=== PATIENT | female | born 1940 | race African-American/Black ===

== ENCOUNTER → 2018-06-27 | Outpatient (CLI) | payer OTHER, BC ==
[~2018-06-27] MED LIST: ALEVE220 MG PO; CENTRUM SILVER1 EAC4 PO; CLONIDINE0.1 PO; FERROUS SULFAT325 MG PO; KLOR-CON M2020 MEQ PO; VALSARTAN-HCTZ1 EAC1 PO
== END ==
LOC: ULTRA 10:16
DX: M25.461 Effusion, right knee (principal); M79.89 Other specified soft tissue disorders

== ENCOUNTER 2018-07-02 05:24 | Inpatient (IN) | payer OTHER, BC ==
[2018-06-25 11:16] LABS: URINE BILIRUBIN NEGATIVE (Negative); URINE BLOOD TRACE (Negative); URINE CLARITY CLEAR; URINE COLOR YELLOW; URINE GLUCOSE-RANDOM* NEGATIVE (Negative); URINE KETONES NEGATIVE (Negative); URINE LEUKOCYTES-REFLEX NEGATIVE (Negative); URINE NITRITE-REFLEX NEGATIVE (Negative); URINE PROTEIN (DIPSTICK) NEGATIVE (Negative); URINE UROBILINOGEN 0.2 E.U./dl (0.2-1.0)
[2018-06-25 11:17] LABS: HEMATOCRIT 30.3 % (37.0-47.0); HEMOGLOBIN 10.4 gm/dL (12.0-15.0); MCH 31.7 pg (26.0-34.0); MCHC 34.4 g/dL (28.0-37.0); MCV 92.3 fL (80.0-100.0); RBC 3.28 mil/uL (4.20-5.00); RDW 13.4 % (10.5-14.5); WBC 5.3 thou/uL (4.0-11.0)
[2018-06-25 11:24] LABS: ALBUMIN 3.3 g/dL (3.4-5.0); CALCIUM 9.6 mg/dL (8.5-10.1); POTASSIUM 4.1 mmol/L (3.5-5.1)
[2018-06-25 11:28] LABS: PROTIME 10.6 Seconds (9.3-11.4)
[2018-07-02] VITALS (9 sets, daily range): BP systolic 109–163; BP diastolic 56–88
[~2018-07-02] VITALS: Ht 154.9 cm; Wt 86.2 kg
--- NOTE | ~2018-07-02 | EKG ---
[place] [address] [facility] [place] [address] ELECTROCARDIOGRAM REPORT Name: GERONIMO STOVER Room #: PRE IN ..#: [id number] Admission: Attend Phys: Karl Tyler MD Discharge: Date of : 36 Report #: [id number] THIS REPORT FOR: //name// [facility] Test Date: 2018-06-25 Test Time: 10:44:12 Pat Name: GERONIMO STOVER Department: Room: Gender: F Mattress Finisher: Kami SKELTON : 1940 Requested By: Karl Tyler Order Number: [id number] MD: Connor Norman Measurements Intervals [place] Rate: 66 P: 35 AK: 164 QRS: 40 QRSD: 91 T: 45 QT: 409 QTc: 429 Interpretive Statements Sinus rhythm early transition non specific st/t wave changes No previous ECG available for comparison Electronically Signed On 06-25-2018 13:00:28 APPLICATIONS INSTRUCTOR by Connor Norman [email or web address] <ELECTRONICALLY SIGNED> By: Connor Norman MD 06/25/18 1300 1044 1044 Connor Norman MD /EPI
--- NOTE | ~2018-07-02 | O ---
[address] [address] OPERATIVE REPORT Name: GERONIMO MERCEDES Room #: 450-P ADM IN M.R.#: [id number] Admission: 07/02/18 Attend Phys: Karl Tyler MD Discharge: Date of : 36 Report #: [id number] THIS REPORT FOR: //name// CC: Karl Mercedes [facility] DATE OF SERVICE: 07/02/2018 SERVICE: Orthopedics. FACILITY: [place]. SURGEON: Karl Tyler MD. PROGRAMMER NUMERICAL CONTROL: Valorie Marie NP. INDICATION FOR PROGRAMMER NUMERICAL CONTROL: Extremity positioning, retracting management and inventory assistant with the arthroplasty. PREOPERATIVE DIAGNOSES: 1. Right knee pain. 2. Right knee valgus type osteoarthritis. 3. Right knee flexion contracture, 12 degrees. POSTOPERATIVE DIAGNOSES: 1. Right knee pain. 2. Right knee valgus type osteoarthritis. 3. Right knee flexion contracture, 12 degrees. 4. Bone cyst, right distal femur. PROCEDURES: 1. Right total knee arthroplasty. 2. Robotic-assisted computer navigation. 3. Open bone grafting, right distal femur cyst. COMPLICATIONS: None. DRAINS: None. SPECIMENS: None. FINDINGS: 1. Osteopenic bone with a bone cyst in the distal femur, treated with open bone grafting with the autograft cancellous bone from the bone cuts as well as some additional allograft cancellous chips. 2. Loza and Nephew size 5 narrow Legion femoral component with size [address] [address] OPERATIVE REPORT Name: GERONIMO MERCEDES Room #: 450-P [facility] IN .R.#: [id number] Admission: 07/02/18 Attend Phys: Karl Tyler MD Discharge: Date of : 36 Report #: [id number] II tibial component, a 9 mm constrained poly insert and 32 mm patellar button. 3. Balanced gaps based on navigated assistance. HISTORY AND INDICATIONS: The patient is a 77-year-old lady who presented several months ago with lifestyle limiting right knee pain with severe arthritis, [id number]-[id number] with sclerosis, osteophyte formation, subchondral cyst and flexion valgus deformity. She had good pulses and neurologically intact distally. She pursued extensive conservative measures including rest, activity modifications, physical therapy, corticosteroid injections, oral medications and lifestyle modifications, all without sufficient relief. She wished to undergo definitive treatment. Risks, benefits, alternatives, and indication of surgery discussed with her in detail as well as her family. Her risks include but not limited to pain, bleeding, infection, injury to nerves or blood vessels, persistent pain despite surgical intervention, failure of any repairs or arthroplasty reconstructions, need for further surgery including revision, fracture as well as complications related to anesthesia such as stroke, heart attack, pulmonary complications, thromboembolic disease and . Despite these risks, she wished to proceed. PROCEDURE IN DETAIL: After the right lower extremity was correctly identified in the preoperative holding area as the operative extremity, the patient underwent placement of a single shot regional nerve block by anesthesia. She was then taken to the operating room where she was placed on the operating table. General anesthesia was induced without complication. She was padded appropriately. Prophylactic antibiotics were administered at appropriate time. Tourniquet was applied to the right leg. Right lower extremity was prepped and draped in standard sterile fashion. Time-out procedure was performed. Esmarch was utilized. Tourniquet was inflated to 300 mmHg. Standard anterior approach was made to the knee with slight valgus alignment to accommodate for the correction of her valgus deformity. Medial parapatellar arthrotomy was performed. There was extensive amount of osteophytes, which were resected with the rongeur. After the patella was everted, the medial and lateral menisci were resected. The notch osteophytes were removed and the cruciate ligaments were resected. The [employer] navigation robotic system was then utilized to map out the distal femur and the proximal tibia taking into account efforts to correct her flexion valgus deformity and restore normal kinematics with a balanced knee that achieved full extension and a neutral mechanical axis. This resulted in our final positioning, we prepared the distal femur and the proximal tibia and then used the 4-ib-1 bone block to make the bone cut and then performed similar technique on the tibia. The trials were then placed with a 9 mm tibial insert. The tibial rotation was assessed. The alignment and rotation appeared to be corrected and she achieved full extension with the trials in place. The proximal tibia was then set for final tibial baseplate positioning. [address] [address] OPERATIVE REPORT Name: GERONIMO MERCEDESA Room #: 450-P [facility] IN M.R.#: [id number] Admission: 07/02/18 Attend Phys: Karl Tyler MD Discharge: Date of : 36 Report #: [id number] There was noted to be a large cavity within the distal femur. The patient has osteopenia and with the osteoporotic/osteopenia bone of the distal femur, I was concerned about the risk of a supracondylar fracture with a periprosthetic supracondylar fracture and so we utilized the bone cuts to generate cancellous bone, which was used to bone graft this distal femur bone cyst that was encountered when the box cut was prepared. This was impacted into position. The knee was then copiously irrigated and then the final implants were selected and cemented into place. Excess cement was removed. Note that the posterior osteophytes were removed as well prior to final implant positioning. The 9 mm poly was placed and then the cement was allowed to cure with the knee in extension after the patella had been clamped into position with a 32 mm patellar button. Final osteophytes around the patella were removed. The tourniquet was let down. Hemostasis was achieved. A total of 120 mL of a periarticular injection cocktail was infiltrated in the soft tissues posteriorly, anteriorly, medially and laterally for perioperative pain control. After the cement was allowed to cure, the knee was once again copiously irrigated, was assessed for balancing. I felt that a constrained liner was more beneficial for her. She had a partial medial collateral ligament avulsion mainly because of the osteopenic bone. It had pulled the peripheral bone off and I was concerned that this may not heal adequately and utilized the constrained liner for some additional coronal plane support. The knee was well balanced with the [address] in both flexion and extension, so the final poly implant was selected. The knee was copiously irrigated, was snapped into position and then the knee was taken through range of motion. It was found to track well. One gram of vancomycin powder was then placed into the knee joint and then the arthrotomy was closed with 0 Vicryl suture in [id number]-[id number]-wzskb fashion. Then a gravity flexion test was performed to confirm appropriate watertight seal. The skin was then closed with 2-0 Vicryl followed by running subcuticular Monocryl and Dermabond. A sterile MILA dressing was applied over the top. The 2 incisions proximally and distally from the external Navio sensors were closed with Monocryl as well. Sterile dressing was applied followed by compression stocking and a [facility] ice device. The patient was then awakened from anesthesia and taken to recovery room in stable condition. There were no complications and all counts were recorded as correct. <ELECTRONICALLY SIGNED> By: Karl Tyler MD 07/03/18 0646 [id number] [id number] Karl Tyler MD /nt
[2018-07-03 02:50] VITALS: BP 102/49
[2018-07-03 05:47] LABS: HEMATOCRIT 25.4 % (37.0-47.0); HEMOGLOBIN 8.7 gm/dL (12.0-15.0); MCH 31.2 pg (26.0-34.0); MCHC 34.1 g/dL (28.0-37.0); MCV 91.5 fL (80.0-100.0); RBC 2.77 mil/uL (4.20-5.00); RDW 13.1 % (10.5-14.5); WBC 9.6 thou/uL (4.0-11.0)
[2018-07-03 06:06] LABS: CALCIUM 8.5 mg/dL (8.5-10.1)
[2018-07-03 08:45] VITALS: BP 137/48
[2018-07-03 16:22] VITALS: BP 119/42
[2018-07-03 20:15] VITALS: BP 126/55
[2018-07-04 04:20] VITALS: BP 127/58
[2018-07-04 04:38] LABS: ABSOLUTE NEUTROPHILS 6.8 thou/uL (1.4-8.2); BASOPHILS 0.3 % (0.0-2.0); EOSINOPHILS 1.9 % (0.0-3.0); HEMATOCRIT 24.4 % (37.0-47.0); HEMOGLOBIN 8.2 gm/dL (12.0-15.0); MCH 30.7 pg (26.0-34.0); MCHC 33.5 g/dL (28.0-37.0); MCV 91.8 fL (80.0-100.0); MONOCYTES 8.8 % (1.0-8.0); PLATELET COUNT 170 thou/uL (150-400); RBC 2.66 mil/uL (4.20-5.00); RDW 13.1 % (10.5-14.5); WBC 8.9 thou/uL (4.0-11.0)
[2018-07-04 04:53] LABS: CALCIUM 8.2 mg/dL (8.5-10.1); CREATININE 1.2 mg/dL (0.6-1.0); POTASSIUM 3.9 mmol/L (3.5-5.1)
[2018-07-04 07:25] VITALS: BP 137/63
[2018-07-04 15:03] VITALS: BP 125/47
[2018-07-04 19:10] VITALS: BP 141/76
[2018-07-05 03:28] VITALS: BP 151/58
[2018-07-05 06:03] LABS: HEMATOCRIT 27.2 % (37.0-47.0); HEMOGLOBIN 9.1 gm/dL (12.0-15.0); MCH 31.1 pg (26.0-34.0); MCHC 33.4 g/dL (28.0-37.0); MCV 93.2 fL (80.0-100.0); PLATELET COUNT 185 thou/uL (150-400); RBC 2.92 mil/uL (4.20-5.00); RDW 13.1 % (10.5-14.5); WBC 14.1 thou/uL (4.0-11.0)
[2018-07-05 06:33] LABS: CALCIUM 8.6 mg/dL (8.5-10.1); CREATININE 1.7 mg/dL (0.6-1.0); POTASSIUM 4.1 mmol/L (3.5-5.1)
[2018-07-05 07:39] VITALS: BP 119/57
[2018-07-05 09:33] LABS: ABSOLUTE NEUTROPHILS 11.6 thou/uL (1.4-8.2); ANISOCYTOSIS 1+
[2018-07-05 19:15] VITALS: BP 125/50
[2018-07-06 03:48] VITALS: BP 94/41
[2018-07-06 06:00] LABS: BASOPHILS 0.5 % (0.0-2.0); EOSINOPHILS 2.8 % (0.0-3.0); HEMATOCRIT 20.3 % (37.0-47.0); LYMPHOCYTES 11.7 % (24.0-44.0); MCH 31.3 pg (26.0-34.0); MCHC 34.7 g/dL (28.0-37.0); MCV 90.2 fL (80.0-100.0); PLATELET COUNT 159 thou/uL (150-400); RBC 2.25 mil/uL (4.20-5.00); RDW 12.6 % (10.5-14.5)
[2018-07-06 06:07] LABS: CALCIUM 8.2 mg/dL (8.5-10.1); POTASSIUM 4.4 mmol/L (3.5-5.1)
[2018-07-06 08:00] VITALS: BP 123/53
[2018-07-06 15:13] VITALS: BP 144/58
[2018-07-06 19:14] VITALS: BP 128/48
[2018-07-07 00:45] VITALS: BP 154/53
[2018-07-07 06:28] LABS: HEMOGLOBIN 7.1 gm/dL (12.0-15.0); MCH 30.4 pg (26.0-34.0); MCHC 33.6 g/dL (28.0-37.0); MCV 90.5 fL (80.0-100.0); RBC 2.32 mil/uL (4.20-5.00); RDW 12.8 % (10.5-14.5)
[2018-07-07 06:37] LABS: ALBUMIN 2.1 g/dL (3.4-5.0); CALCIUM 8.9 mg/dL (8.5-10.1); CREATININE 1.1 mg/dL (0.6-1.0); PHOSPHORUS 2.2 mg/dL (2.5-4.9); POTASSIUM 4.9 mmol/L (3.5-5.1)
[2018-07-07 07:21] VITALS: BP 126/56
[2018-07-07 14:27] VITALS: BP 141/51
[2018-07-07 15:58] LABS: URINE BILIRUBIN NEGATIVE (Negative); URINE BLOOD TRACE (Negative); URINE CLARITY CLEAR; URINE COLOR YELLOW; URINE GLUCOSE-RANDOM* NEGATIVE (Negative); URINE KETONES NEGATIVE (Negative); URINE LEUKOCYTES-REFLEX NEGATIVE (Negative); URINE NITRITE-REFLEX NEGATIVE (Negative); URINE PROTEIN (DIPSTICK) NEGATIVE (Negative); URINE SPECIFIC GRAVITY <= 1.005 (1.005-1.035); URINE UROBILINOGEN 0.2 E.U./dl (0.2-1.0)
[2018-07-07 20:51] VITALS: BP 179/59
[2018-07-08 07:20] VITALS: BP 152/60
[2018-07-08 11:29] VITALS: BP 152/60
== END 2018-07-08 13:23 | disposition home or self-care (01) | DRG 469 ==
LOC: PRE 05:24 → 4W 05:39 → TBA 05:39 → PRE 10:44 → 4W 12:53 → PRE 13:55 → SICU 07-07 19:55 → ENTRNSPT 07-08 12:52 → EDTRNSPTSTS 07-08 12:59 → SICU 07-08 13:23
PROVIDERS: Hospitalist; Orthopaedic Surgery Sports Medicine
PROC: 0SRC0J9 Replacement of Right Knee Joint with Synthetic Substitute, Cemented, Open Approach (ICD-10-PCS; principal; 2018-07-02)
PROC: 0QUB07Z Supplement Right Lower Femur with Autologous Tissue Substitute, Open Approach (ICD-10-PCS; principal; 2018-07-02)
PROC: 8E0Y0CZ Robotic Assisted Procedure of Lower Extremity, Open Approach (ICD-10-PCS; principal; 2018-07-02)
DX: M17.11 Unilateral primary osteoarthritis, right knee (principal); E43 Unspecified severe protein-calorie malnutrition; N17.9 Acute kidney failure, unspecified; M85.651 Other cyst of bone, right thigh; K64.4 Residual hemorrhoidal skin tags; K64.8 Other hemorrhoids; M24.561 Contracture, right knee; I10 Essential (primary) hypertension; G62.9 Polyneuropathy, unspecified; K59.00 Constipation, unspecified; Z88.5 Allergy status to narcotic agent; Z79.899 Other long term (current) drug therapy; Z88.8 Allergy status to other drugs, medicaments and biological substances; Z87.891 Personal history of nicotine dependence; Z90.710 Acquired absence of both cervix and uterus; Z98.42 Cataract extraction status, left eye; Z98.41 Cataract extraction status, right eye
CPT/HCPCS: 10047; 15002; 50010; 50101; 50415; 50954; 51130; 51225; 51320; 51771; 52001; 52282; 53000; 53078; 53170; 53364; 54118; 56527; 56528; 57095; 57103; 57109; 57110; 57113; 57127; 57180; 62110; 62900; 64042; 70005